=== PATIENT | female | born 1965 | race Asian ===

== ENCOUNTER 2016-11-07 18:10 | Emergency (ER) | payer OTHER ==
[2016-11-07 18:43] VITALS: BP 130/72
--- NOTE | 2016-11-07 20:14 | UC ---
Throat Pain/Nasal Vladimir HPI - HPI Summary HPI Summary: THREE DAYS AGO DEVELOPED SORE THROAT WITH WHITE SPOTS ON TONSILS AND PALATE. NO FEVER. HAD BEEN ON FLAGYL FOR BV - History of Current Complaint Chief Complaint: UCRespiratory Stated Complaint: SORE THROAT Time Seen by Provider: 11/07/16 19:43 Hx Obtained From: Patient Hx Last Menstrual Period: 10/01/16 Onset/Duration: Gradual Onset, Lasting Days, Still Present Severity: Moderate Cough: None Associated Signs & Symptoms: Positive: Hoarseness - Allergies/Home Medications Allergies/Adverse Reactions: Allergies Allergy/AdvReac Type Severity Reaction Status Date / Time seasonal Allergy Sneezing Uncoded 11/07/16 18:43 Home Medications: Home Medications Biotin 1 mg PO DAILY 11/07/16 [History Confirmed 11/07/16] Multiple Vitamin [Multi Vitamin] 1 tab PO DAILY 11/07/16 [History Confirmed ] PMH/Surg Hx/FS Hx/Imm Hx Previously Healthy: Yes - Surgical History Surgical History: None - Family History Known Family History: Positive: None Negative: Diabetes - Social History Occupation: Employed Full-time Lives: With Family Alcohol Use: Occasionally Substance Use Type: None Smoking Status (MU): Never Smoked Tobacco Review of Systems Constitutional: Negative Skin: Negative Eyes: Negative ENT: Sore Throat Respiratory: Negative Cardiovascular: Negative Gastrointestinal: Negative Genitourinary: Negative Motor: Negative Neurovascular: Negative Musculoskeletal: Negative Neurological: Negative Psychological: Negative All Other Systems Reviewed And Are Negative: Yes Physical Exam Triage Information Reviewed: Yes Appearance: Well-Appearing, No Pain Distress, Well-Nourished Vital Signs: Initial Vital Signs Temp 99 F 11/07/16 18:38 Pulse 71 11/07/16 18:38 Resp 14 11/07/16 18:38 BP 130/72 11/07/16 18:38 Pulse Ox 100 11/07/16 18:38 Vital Signs Reviewed: Yes Eye Exam: Normal Eyes: Positive: Conjunctiva Clear ENT: Positive: Pharyngeal erythema, Tonsillar exudate, Other: - DIFFUSE WHITE PLAQUES ON TONSILS AND SOFT PALATE Dental Exam: Normal Neck exam: Normal Neck: Positive: Supple Respiratory Exam: Normal Respiratory: Positive: Chest non-tender Cardiovascular Exam: Normal Cardiovascular: Positive: RRR, No Murmur, Pulses Normal Abdominal Exam: Normal Musculoskeletal Exam: Normal Musculoskeletal: Positive: Strength Intact, ROM Intact Neurological Exam: Normal Psychological Exam: Normal Skin Exam: Normal Throat Pain/Nasal Course/Dx - Differential Dx/Diagnosis Differential Diagnosis/HQI/PQRI: Pharyngitis, Sinusitis, Tonsillitis, URI Provider Diagnoses: ORAL CANDIDIASIS Discharge - Discharge Plan Condition: Stable Disposition: HOME Prescriptions: Fluconazole [Diflucan 150 MG (NF)] 150 mg PO ONCE #1 tab Nystatin SUSPENSION ORAL SYR* 100,000 units PO TID #75 ml Patient Education Materials: Oral Candidiasis (ED) Referrals: Ching Negrete MD [Primary Care Provider] -
== END 2016-11-07 20:11 | disposition home or self-care (01) ==
LOC: UCCORT 18:10
DX: B37.0 Candidal stomatitis (principal); J30.2 Other seasonal allergic rhinitis
CPT/HCPCS: 87651; 99212; G0463